=== PATIENT | female | born 1965 | race Caucasian/White ===

== ENCOUNTER → 2020-01-11 14:39 | Outpatient (BNVA) | payer BC, SELFPAY | PROVIDERS: Visit Provider Psychiatry & Neurology Psychiatry | DX: F33.1 Major depressive disorder, recurrent, moderate (principal); F41.1 Generalized anxiety disorder | CPT/HCPCS: 99204 ==

== ENCOUNTER → 2020-02-22 07:56 | Outpatient (BNVA) | payer BC, SELFPAY | PROVIDERS: Visit Provider Psychiatry & Neurology Psychiatry | DX: F33.1 Major depressive disorder, recurrent, moderate (principal); F41.1 Generalized anxiety disorder | CPT/HCPCS: 99213 ==

== ENCOUNTER → 2020-06-01 09:39 | Outpatient (BNVA) | payer BC, SELFPAY | PROVIDERS: Referring Provider Nurse Practitioner Family; Visit Provider Podiatrist Foot & Ankle Surgery | DX: M79.671 Pain in right foot (principal) | CPT/HCPCS: 73630 ==

== ENCOUNTER → 2024-01-17 09:40 | Outpatient (BNVA) | payer OTHER, SELFPAY | PROVIDERS: PCP Nurse Practitioner Family; Visit Provider Podiatrist Foot & Ankle Surgery | DX: M20.11 Hallux valgus (acquired), right foot (principal); M20.12 Hallux valgus (acquired), left foot | CPT/HCPCS: 73630 ==

== ENCOUNTER 2025-06-28 06:00 | Day surgery (SDC) | payer OTHER, SELFPAY ==
[2025-06-28] VITALS (10 sets, daily range): BP systolic 114–139; BP diastolic 70–83; PULSE 62–72; RESP 10–21; TEMP 36.1–36.7; O2SAT 95–99; BMI 22.3
--- NOTE | 2025-06-28 | XR_ITS ---
WS: [id number] XR foot LT 2V [id number] REASON FOR EXAM: Left foot Lapidus bunionectomy Left foot [place] osteotomy FINDINGS: Osteotomy of the proximal phalanx of the first toe with screw fixation. Surgical appliances intact and in proper position and alignment. Expected alignment of the osteotomy site. Osteotomy of the distal head of the first metatarsal. XR/XR foot LT 2V [id number] IMPRESSION: Osteotomies of the first toe without abnormality as above.
--- NOTE | 2025-06-28 06:36 | ANES.PREANE2 ---
Pre-Anesthetic Assessment Height/Weight: Height 5 ft 4 in Weight 130 lb Temp Pulse Resp BP Pulse Ox O2 Del Method 97.8 F 69 18 120/74 99 Room Air 06/28/25 06:15 06/28/25 06:15 06/28/25 06:15 06/28/25 06:15 06/28/25 06:15 06/28/25 06:15 Preop Diagnosis: Left hallux valgus Operation Date: 06/28/25 07:00 Proposed Procedures p Bunionectomy Lapidus(Left) - Jay Hartmann DPM s Иван Osteotomy(Left) - Jay Hartmann DPM Was Beta Hamzah taken within 24 hours: N/A Was Clonidine taken within 24 hours: N/A Last intake: Intake Last Liquid Date 06/27/25 Last Liquid Time 21:00 Last Solid Date 06/27/25 Last Solid Time 17:30 Social Alcohol and No tobacco Very occasional alcohol use, few times a year Exam alert, oriented x 3, clear to auscultation bilaterally and regular rate & rhythm Airway Submandibular: within normal limits Cervical ROM: within normal limits Mallampati: Class II Dentition: full Anesthetic Plan ASA status: 2 Anesthesia: Choice Other: No prior issues with anesthesia NPO since yesterday evening History of hypothyroidism on Synthroid Denies any cardiac or pulmonary issues METs greater than 4 Plan for local via surgeon Medications/Allergies Home Medications ?Medication ?Instructions ?Recorded ?Confirmed ?Last Taken ?Type aripiprazole 2 mg tablet (Abilify) 2 mg PO DAILY 11/15/23 06/24/25 06/21/25 History bupropion HCl 300 mg 24 hr tablet, 300 mg PO QAM 11/15/23 06/24/25 06/21/25 History extended release levothyroxine 25 mcg capsule 25 mcg PO DAILY 11/15/23 06/24/25 06/21/25 History rosuvastatin 10 mg tablet 10 mg PO DAILY 11/15/23 06/24/25 06/21/25 History tirzepatide 10 mg/0.5 mL 10 mg SUBCUT 10 11/15/23 06/24/25 06/21/25 History subcutaneous pen injector (Mounjaro) Crutches #1 ea 05/27/25 05/27/25 06/21/25 Rx Allergies Allergy/AdvReac Type Severity Reaction Status Date / Time No Known Allergies Allergy Verified 06/28/25 06:12 Current Medications Generic Name Dose Route Start Last Admin Trade Name Freq PRN Reason Stop Dose Admin Sodium Chloride 1,000 mls @ 30 mls/hr 06/28/25 06:45 06/28/25 06:35 Sodium Chloride 0.9% IV 30 mls/hr .Q24H ALPESH Administration PFSH Anesthesia Medical History Generalized anxiety disorder Moderate episode of recurrent major depressive disorder Social History Smoking and tobacco/nicotine status: unknown if used tobacco/nicotine Second hand smoke exposure: No Current gender identity: Female
--- NOTE | 2025-06-28 06:51 | W.PM.OPSFHP ---
Same Day Surgery H&P Indication for Procedure/HPI DATE OF PROCEDURE: June 28, 2025 CHIEF COMPLAINT/INDICATIONFOR SURGICAL PROCEDURE: Left foot hallux valgus PREOP DIAGNOSIS: Left hallux valgus PLANNED PROCEDURE: Operation Date: 06/28/25 07:00 Proposed Procedures p Bunionectomy Lapidus(Left) - Jay Hartmann DPM s Иван Osteotomy(Left) - Jay Hartmann DPM Medications/Allergies* Home Medications ?Medication ?Instructions ?Recorded ?Confirmed ?Type aripiprazole 2 mg tablet (Abilify) 2 mg PO DAILY 11/15/23 06/24/25 History bupropion HCl 300 mg 24 hr tablet, 300 mg PO QAM 11/15/23 06/24/25 History extended release levothyroxine 25 mcg capsule 25 mcg PO DAILY 11/15/23 06/24/25 History rosuvastatin 10 mg tablet 10 mg PO DAILY 11/15/23 06/24/25 History tirzepatide 10 mg/0.5 mL 10 mg SUBCUT 10 11/15/23 06/24/25 History subcutaneous pen injector (Williams) Allergies/Adverse Reactions Allergy/AdvReac Type Severity Reaction Status Date / Time No Known Allergies Allergy Verified 06/28/25 06:12 Current Medications: Generic Name Dose Route Start Last Admin Trade Name Freq PRN Reason Stop Dose Admin Sodium Chloride 1,000 mls @ 30 mls/hr 06/28/25 06:45 06/28/25 06:35 Sodium Chloride 0.9% IV 30 mls/hr .Q24H ALPESH Administration Pertinent History/Comorbid Conditions* Medical History (Updated 12/28/24 @ 18:27 by Jay Hartmann DPM) Generalized anxiety disorder Moderate episode of recurrent major depressive disorder Social History Smoking and tobacco/nicotine status: unknown if used tobacco/nicotine Second hand smoke exposure: No Current gender identity: Female Pertinent Exam Findings alert, oriented x 3, clear to auscultation bilaterally, regular rate & rhythm, operative site marked and procedure specific exam findings Left foot hallux valgus deformity Recommendations Surgery/Procedure today Coding Level of Care Code Acute Code for Chg Fwd
[2025-06-28] MEDS: ceFAZolin 2,000 mg SDV 2000 MG IVP (07:11)
[2025-06-28] MEDS: BUPivacaine 0.5% INJ 30 mL INJECTION (07:15)
--- NOTE | 2025-06-28 08:41 | P.OP_ITS ---
Operative Report Date of procedure: June 28, 2025 Surgeon: Jay Hartmann DPM Procedure: Date of procedure: 06/28/2025 Pre-op diagnosis: Left hallux valgus Post-op diagnosis: Same Post-op findings: Left hallux valgus Procedure done: 1. Left foot Lapidus bunionectomy CPT 15120 2. Left foot [place] osteotomy CPT 79893 Implants: Lapidus plate Pike, 3.5 screw for Rober Specimens removed: None Surgeon: Dr. Jay Hartmann DPM Licensed Insurance Agent: Miguel Estimated blood loss: 5cc Tourniquet time: 77 minutes Complications: none Patient is a 60-year-old female that has a history of hallux valgus. The patient has had the aforementioned chief complaint for some time. Conservative treatment measures have been attempted and the patient has opted for surgical intervention at this time. A lengthy discussion regarding the procedure, including risks and complications has been had with the patient and is noted in the recent clinic note. Written and verbal consent have been obtained. All patient questions have been answered to the patient?s satisfaction. No written or verbal guarantees have been given or implied. The patient has been NPO since midnight. The history has been reviewed and the history and physical is current. The signed consent was confirmed and placed in the patient chart. Patient imaging has been reviewed and is consistent with the diagnosis. Under mild sedation, the patient was brought into the operating room and placed on the table in the supine position. IV antibiotics were given by the anesthesia team as preoperative surgical prophylaxis. general sedation was then performed by the anesthesiateam. A pneumatic tourniquet was then placed about the left ankle. The operative extremity was then prepped and draped in the usual fashion. The extremity was then elevated and exsanguinated before the tourniquet was inflated to 325mmHg. After inflation, the following procedure was then performed. Attention was directed to the left foot where a 5 cm incision was made overlying the first tarsometatarsal joint. Dissection was carried down to subcutaneous the superficial fascia to the level of the joint capsule which was incised to expose the underlying joint. Sagittal bone saw was then used to resect the articular surfaces from the medial cuneiform and first metatarsal base in preparation for arthrodesis. Arthrodesis site was fenestrated. Metatarsal was reduced to appropriate anatomic position before being temporary fixated with Steinmann pin. 3.5 crossing screw was then placed from distal medial to proximal lateral across the arthrodesis site. Next a first tarsometatarsal arthrodesis plate 3 mm step-off from [employer] was position on the first tarsometatarsal joint. Holes of the plate were drilled and filled proximally with locking screws before the separate drill hole distally was filled. Remaining holes were then filled with locking screws. Attention was directed to the distal left hallux where a stab incision was made at the level of the hallux interphalangeal joint medially Swetha bur was used to perform an Rober osteotomy before a 3 5 screw was used for Rober osteotomy fixation. Good alignment of ostia structures was noted. Sites were irrigated with copious amounts of sterile saline before attention was directed to closure. Deep tissue was closed with 3-0 Vicryl followed by subcuticular closure with 4- 0 Vicryl and skin closure with 4-0 nylon in horizontal mattress fashion. Incisions were dressed with Xeroform, 4 x 4 gauze, Kerlix, Vlad. Site was anesthetized using 0.5% Marcaine plain. The patient tolerated the procedure and anesthesia well and without complica tion. The patient was transported from the operating room to the recovery room with vital signs stable and vascular status intact to all digits of the left foot. The patient was given both written and verbal instructions to remain nonweightbearing to the operative extremity, to keep dressings/splint clean, dry and intact and to take pain medication as directed. The patient will follow-up in the outpatient setting at their scheduled appointment. The patient was discharged with my personal number and was instructed to call if any questions or issues should arise. They were discharged home once anesthesia criteria was met.
[2025-06-28] MEDS: HYDROcodone-acetaminophen 5-325 mg Tablet 1 TAB PO (09:33)
--- NOTE | 2025-06-28 09:57 | ANE.PACU2 ---
Inpatient post-anesthesia follow up: Airway intact: Yes Vital signs: Temperature 97.3 F Pulse Rate 66 Respiratory Rate 18 Blood Pressure 139/83 Pulse Oximetry 98 Oxygen Delivery Me thod Room Air Oxygen Flow Rate 10 Fraction of Inspir ed Oxygen Hydration adequate: Yes Nausea and vomiting: No Pain level: 1 Mental status: Baseline
== END 2025-06-28 09:57 | disposition home or self-care (01) ==
PROVIDERS: PCP Nurse Practitioner Family; Visit Provider Podiatrist Foot & Ankle Surgery
PROC: (CPT 28297; principal; 2025-06-28 07:00)
PROC: (CPT 28298; 2025-06-28 07:00)
DX: M20.12 Hallux valgus (acquired), left foot (principal); F41.9 Anxiety disorder, unspecified; F33.8 Other recurrent depressive disorders; E03.9 Hypothyroidism, unspecified
CPT/HCPCS: 28297; 28310; 36415; 73620; 76000; C1713; J0690; J1100; J2250; J2371; J2405; J2704; J3010; J3490; J7030; J9999

== ENCOUNTER → 2025-07-01 11:42 | Outpatient (BNVA) | payer OTHER, SELFPAY | PROVIDERS: PCP Nurse Practitioner Family; Visit Provider Podiatrist Foot & Ankle Surgery | DX: M79.672 Pain in left foot (principal); W19.XXXA Unspecified fall, initial encounter; Z98.890 Other specified postprocedural states | CPT/HCPCS: 73630 ==

== ENCOUNTER → 2025-07-12 15:00 | Outpatient (BNVA) | payer OTHER, SELFPAY | PROVIDERS: PCP Nurse Practitioner Family; Visit Provider Podiatrist Foot & Ankle Surgery | DX: Z98.890 Other specified postprocedural states (principal); M20.12 Hallux valgus (acquired), left foot; M20.11 Hallux valgus (acquired), right foot; Q82.8 Other specified congenital malformations of skin; M21.621 Bunionette of right foot | CPT/HCPCS: 73630 ==

== ENCOUNTER → 2025-07-26 14:32 | Outpatient (BNVA) | payer OTHER, SELFPAY | PROVIDERS: PCP Nurse Practitioner Family; Visit Provider Podiatrist Foot & Ankle Surgery | DX: M20.12 Hallux valgus (acquired), left foot (principal); M20.11 Hallux valgus (acquired), right foot; Q82.8 Other specified congenital malformations of skin; M21.629 Bunionette of unspecified foot | CPT/HCPCS: 73630 ==

== ENCOUNTER → 2025-08-09 12:52 | Outpatient (BNVA) | payer OTHER, SELFPAY | PROVIDERS: PCP Nurse Practitioner Family; Visit Provider Podiatrist Foot & Ankle Surgery | DX: Z98.890 Other specified postprocedural states (principal); M21.622 Bunionette of left foot; M20.12 Hallux valgus (acquired), left foot; M20.11 Hallux valgus (acquired), right foot; Q82.8 Other specified congenital malformations of skin | CPT/HCPCS: 73630 ==